=== PATIENT | male | born 1980 | race Caucasian/White ===

== ENCOUNTER 2017-06-08 21:37 | Emergency (ER) | payer BC, OTHER ==
[~2017-06-08] VITALS: Ht 185.4 cm; Wt 131.5 kg
[~2017-06-08 21:37] MED LIST: ADVAIR HFA 230M12 GM INH; CIPROFLOXACIN500 M1 PO; COREG25 MG PO; HUMALOG100 UNIT/1 SUBQ; LANTUS100 UNIT/M SUBQ; LASIX 40 MG TAB40 M2 PO; NOVOLIN 70100 UNIT/5 SQ; PREDNISONE 10 M10 MG PO; PYRIDIUM200 MG PO; SINGULAIR 10 MG10 M1 PO; VENTOLIN HFA 1818 GM INH
[2017-06-08 22:02] LABS: URINE BILIRUBIN NEGATIVE (Negative); URINE BLOOD 3+ (Negative); URINE COLOR YELLOW; URINE GLUCOSE-RANDOM* NEGATIVE (Negative); URINE KETONES NEGATIVE (Negative); URINE LEUKOCYTES-REFLEX NEGATIVE (Negative); URINE PROTEIN (DIPSTICK) 1+ (Negative); URINE SPECIFIC GRAVITY >= 1.030 (1.003-1.035); URINE UROBILINOGEN 0.2 E.U./dl (0.2-1.0)
[2017-06-08 22:04] LABS: ABSOLUTE NEUTROPHILS 5.8 thou/uL (1.4-8.2); BASOPHILS 0.6 % (0.0-2.0); EOSINOPHILS 1.2 % (0.0-3.0); HEMATOCRIT 40.5 % (42.0-52.0); HEMOGLOBIN 13.9 gm/dL (14.0-18.0); MCH 28.8 pg (26.0-34.0); MCHC 34.4 g/dL (28.0-37.0); MCV 83.9 fL (80.0-100.0); MONOCYTES 7.2 % (1.0-8.0); PLATELET COUNT 268 thou/uL (150-400); RBC 4.83 mil/uL (4.50-6.00); RDW 13.7 % (10.5-14.5); WBC 10.2 thou/uL (4.0-11.0)
[2017-06-08 22:05] LABS: MANUAL DIFF NO
[2017-06-08 22:09] LABS: CASTS None Seen /LPF (None Seen); CRYSTALS None Seen /LPF (None Seen); SQUAMOUS 0-3 Few /LPF (0-3); URINE RBC >20 Many /HPF (0-2); URINE WBC-REFLEX None Seen /HPF (0-5)
[2017-06-08 22:14] LABS: CREATININE 1.1 mg/dL (0.7-1.3); POTASSIUM 3.8 mmol/L (3.5-5.1)
[2017-06-08 22:19] LABS: ALBUMIN 3.5 g/dL (3.4-5.0); TOTAL BILIRUBIN 0.3 mg/dL (<0.1-1.0); TOTAL PROTEIN 7.3 g/dL (6.4-8.2)
[2017-06-08] MEDS ORDERED: ZOFRAN ODT4 MG PO (23:47)
[2017-06-08] MEDS ORDERED: NORCO 5-325 TA1 EACH PO (23:47)
[2017-06-08] MEDS ORDERED: PYRIDIUM200 MG PO (23:47)
[2017-06-08] MEDS ORDERED: SENOKOT-S1 TA1 PO (23:47)
[2017-06-08] MEDS ORDERED: MACROBID 100 M100 M1 PO (23:47)
[2017-06-09 00:08] VITALS: BP 121/81
== END 2017-06-09 00:09 | disposition home or self-care (01) ==
LOC: ER 21:37
PROVIDERS: Emergency Medicine
DX: N10 Acute pyelonephritis (principal); I11.0 Hypertensive heart disease with heart failure; I50.9 Heart failure, unspecified; J45.909 Unspecified asthma, uncomplicated; F10.99 Alcohol use, unspecified with unspecified alcohol-induced disorder; E11.9 Type 2 diabetes mellitus without complications; Z79.4 Long term (current) use of insulin; Z88.0 Allergy status to penicillin; Z88.8 Allergy status to other drugs, medicaments and biological substances

== ENCOUNTER 2017-11-28 19:48 | Emergency (ER) | payer BC, OTHER ==
[~2017-11-28] VITALS: Ht 185.4 cm; Wt 129.3 kg
[~2017-11-28 19:48] MED LIST changes: +MACROBID 100 M100 M1 PO; +NORCO 5-325 TA1 EACH PO; +SENOKOT-S1 TA1 PO; +ZOFRAN ODT4 MG PO
[2017-11-28 20:30] LABS: ABSOLUTE NEUTROPHILS 7.1 thou/uL (1.4-8.2); BASOPHILS 0.5 % (0.0-2.0); EOSINOPHILS 0.9 % (0.0-3.0); HEMATOCRIT 41.1 % (42.0-52.0); LYMPHOCYTES 26.7 % (24.0-44.0); MCH 28.9 pg (26.0-34.0); MCHC 34.1 g/dL (28.0-37.0); MCV 84.9 fL (80.0-100.0); PLATELET COUNT 291 thou/uL (150-400); POLYS 65.9 % (36.0-66.0); RBC 4.84 mil/uL (4.50-6.00); RDW 13.3 % (10.5-14.5); WBC 10.8 thou/uL (4.0-11.0)
[2017-11-28] MEDS ORDERED: METFORMIN HCL500 MG PO (20:47)
[2017-11-28] MEDS ORDERED: PRILOSEC 20 MG20 MG PO ×2 (20:48→22:23)
[2017-11-28 20:54] LABS: ANION GAP 9 mmol/L (7-16); BUN 18 mg/dL (7-18); CHLORIDE 106 mmol/L (98-107); CO2 26 mmol/L (21-32); GLUCOSE 110 mg/dL (74-106); POTASSIUM 3.6 mmol/L (3.5-5.1); SODIUM 141 mmol/L (136-145)
[2017-11-28 21:00] LABS: ALBUMIN 3.6 g/dL (3.4-5.0); DIRECT BILIRUBIN < 0.1 mg/dL (<0.1-0.3); LIPASE 160 U/L (73-393); SGOT 17 U/L (15-37); SGPT 32 U/L (30-65); TOTAL BILIRUBIN 0.8 mg/dL (<0.1-1.0); TOTAL PROTEIN 7.1 g/dL (6.4-8.2)
[2017-11-28] MEDS ORDERED: ULTRAM 50MG TAB50 MG PO (22:23)
[2018-03-23] MEDS ORDERED: NORVASC5 MG PO (18:42)
[2018-03-23] MEDS ORDERED: PHENAZOPYRIDIN200 M2 PO ×2 (18:42→20:48)
[2018-03-23] MEDS ORDERED: NORCO 5-325 TA1 EACH PO (20:48)
== END 2017-11-28 22:39 | disposition home or self-care (01) ==
LOC: ER 19:48
PROVIDERS: Emergency Medicine
DX: R10.9 Unspecified abdominal pain (principal); I50.9 Heart failure, unspecified; J45.909 Unspecified asthma, uncomplicated; I10 Essential (primary) hypertension; E11.9 Type 2 diabetes mellitus without complications; Z88.0 Allergy status to penicillin; Z88.8 Allergy status to other drugs, medicaments and biological substances

== ENCOUNTER 2019-03-20 15:56 | Emergency (ER) | payer BC, OTHER ==
[~2019-03-20] VITALS: Ht 188 cm; Wt 129.3 kg
[~2019-03-20 15:56] MED LIST changes: +METFORMIN HCL500 MG PO; +NORVASC5 MG PO; +PHENAZOPYRIDIN200 M2 PO; +PRILOSEC 20 MG20 MG PO; +ULTRAM 50MG TAB50 MG PO
[2019-03-20] MEDS ORDERED: PREDNISONE 20 M20 MG PO (18:38)
[2019-03-20 19:03] VITALS: BP 129/73
[2019-03-20] MEDS ORDERED: ALBUTEROL2.5 MG/31 INH (19:03)
== END 2019-03-20 19:06 | disposition home or self-care (01) ==
LOC: ER 15:56
DX: J45.901 Unspecified asthma with (acute) exacerbation (principal); I11.0 Hypertensive heart disease with heart failure; I50.9 Heart failure, unspecified; E11.9 Type 2 diabetes mellitus without complications; Z86.14 Personal history of Methicillin resistant Staphylococcus aureus infection; Z87.442 Personal history of urinary calculi; Z79.4 Long term (current) use of insulin; Z79.899 Other long term (current) drug therapy; Z88.0 Allergy status to penicillin; Z88.8 Allergy status to other drugs, medicaments and biological substances

== ENCOUNTER 2019-04-04 18:36 | Emergency (ER) | payer BC, OTHER ==
[~2019-04-04] VITALS: Ht 185.4 cm; Wt 129.3 kg
[~2019-04-04 18:36] MED LIST changes: +ALBUTEROL2.5 MG/31 INH; +PREDNISONE 20 M20 MG PO
[2019-04-04] MEDS ORDERED: OXYCODON-ACETA1 EAC1 PO (18:44)
[2019-04-04] MEDS ORDERED: ASPIRIN325 PO (18:44)
[2019-04-04] MEDS ORDERED: BACTRIM DS TAB1 EACH PO ×2 (19:30→19:36)
[2019-04-04 21:25] VITALS: BP 135/85
== END 2019-04-04 21:25 | disposition home or self-care (01) ==
LOC: ER 18:36
DX: L03.116 Cellulitis of left lower limb (principal); G89.18 Other acute postprocedural pain; I11.0 Hypertensive heart disease with heart failure; I50.9 Heart failure, unspecified; J45.909 Unspecified asthma, uncomplicated; E11.9 Type 2 diabetes mellitus without complications; Z88.8 Allergy status to other drugs, medicaments and biological substances; Z88.0 Allergy status to penicillin; Z87.442 Personal history of urinary calculi; Z79.4 Long term (current) use of insulin

== ENCOUNTER 2019-05-10 14:25 | Emergency (ER) | payer BC, OTHER ==
[~2019-05-10] VITALS: Ht 182.9 cm; Wt 129.3 kg
[~2019-05-10 14:25] MED LIST changes: +ASPIRIN325 PO; +BACTRIM DS TAB1 EACH PO; +OXYCODON-ACETA1 EAC1 PO
[2019-05-10 15:38] LABS: HEMATOCRIT 41.9 % (42.0-52.0); HEMOGLOBIN 13.9 gm/dL (14.0-18.0); MCH 28.3 pg (26.0-34.0); MCHC 33.3 g/dL (28.0-37.0); RBC 4.92 mil/uL (4.50-6.00); RDW 14.1 % (10.5-14.5)
[2019-05-10 15:46] LABS: CALCIUM 9.2 mg/dL (8.5-10.1); CREATININE 1.1 mg/dL (0.7-1.3); POTASSIUM 3.5 mmol/L (3.5-5.1)
[2019-05-10 15:47] LABS: MAGNESIUM 1.6 mg/dL (1.8-2.4)
[2019-05-10 18:30] VITALS: BP 141/84
--- NOTE | 2019-05-11 08:21 | EKG ---
[place] [address] [facility] [place] [address] ELECTROCARDIOGRAM REPORT Name: CHRISTINA PONCE [facility] [id number] ������������������ Admission: 05/10/19 ������������������ Attend Phys: Discharge: 05/10/19 ������������������ Date of : 78 Report #: [id number] ����������������������������������������������������������������� [id number] THIS REPORT FOR: //name// [facility] ED Test Date: 2019-05-10 Test Time: 14:37:15 Pat Name: CHRISTINA PONCE Department: Room: Gender: Cold Type Artist: JLAMBERT : 1980 Requested By: Alcira Ma Order Number: [id number] MD: Edwin Garcia Measurements Intervals [place] Rate: 88 P: 29 [place]: 177 QRS: 47 QRSD: 99 T: 51 QT: 358 QTc: 434 Interpretive Statements Sinus rhythm Normal tracing Compared to ECG 08/01/2016 01:57:12 Sinus tachycardia no longer present Electronically Signed On 05-11-2019 8:20:56 CDT by Edwin Garcia [email or web address] ��������������������������������������������� <ELECTRONICALLY SIGNED> ���������������������������������������� By: Edwin Garcia MD, [facility] ��������������������������������������������� 05/11/19 0820 1437 1437 Edwin Garcia MD, FACC /EPI
== END 2019-05-10 18:30 | disposition home or self-care (01) ==
LOC: ER 14:25
PROVIDERS: Emergency Medicine
DX: R55 Syncope and collapse (principal); E11.9 Type 2 diabetes mellitus without complications; I10 Essential (primary) hypertension; J45.909 Unspecified asthma, uncomplicated; I50.9 Heart failure, unspecified; Z87.442 Personal history of urinary calculi; Z86.14 Personal history of Methicillin resistant Staphylococcus aureus infection; Z88.0 Allergy status to penicillin; Z88.8 Allergy status to other drugs, medicaments and biological substances

== ENCOUNTER 2019-06-09 10:11 | Emergency (ER) | payer BC, OTHER ==
[~2019-06-09] VITALS: Ht 185.4 cm; Wt 129.3 kg
[2019-06-09 10:35] LABS: ABSOLUTE NEUTROPHILS 3.4 thou/uL (1.4-8.2); BASOPHILS 0.5 % (0.0-2.0); EOSINOPHILS 2.2 % (0.0-3.0); HEMATOCRIT 44.1 % (42.0-52.0); HEMOGLOBIN 14.8 gm/dL (14.0-18.0); LYMPHOCYTES 41.7 % (24.0-44.0); MCH 28.6 pg (26.0-34.0); MCHC 33.7 g/dL (28.0-37.0); MCV 85.1 fL (80.0-100.0); MONOCYTES 8.4 % (1.0-8.0); PLATELET COUNT 273 thou/uL (150-400); POLYS 47.2 % (36.0-66.0); RBC 5.18 mil/uL (4.50-6.00); RDW 14.3 % (10.5-14.5); WBC 7.3 thou/uL (4.0-11.0)
[2019-06-09 10:45] LABS: ANION GAP 11 mmol/L (7-16); BUN 19 mg/dL (7-18); CALCIUM 9.4 mg/dL (8.5-10.1); CHLORIDE 105 mmol/L (98-107); CO2 25 mmol/L (21-32); CREATININE 1.1 mg/dL (0.7-1.3); GLUCOSE 127 mg/dL (74-106); POTASSIUM 3.6 mmol/L (3.5-5.1); SODIUM 141 mmol/L (136-145)
[2019-06-09 10:55] LABS: TROPONIN-I <0.06 ng/mL (<0.06)
[2019-06-09] MEDS ORDERED: PREDNISONE 20 M20 MG PO (11:39)
[2019-06-09 11:46] VITALS: BP 122/71
--- NOTE | 2019-06-12 17:59 | EKG ---
[place] [address] [employer] [place] [address] ELECTROCARDIOGRAM REPORT Name: KRIS Shirlene [facility] [id number] ������������������ Admission: 06/09/19 ������������������ Attend Phys: Discharge: 06/09/19 ������������������ Date of : [birth year] Report #: [id number] ����������������������������������������������������������������� [id number] THIS REPORT FOR: //name// [facility] ED Test Date: 2019-06-09 Test Time: 10:55:27 Pat Name: MICHAEL PONCE Department: Room: Gender: Clinical Rn Manager: RADHASDABDI : 1980 Requested By: Michael Osborn Order Number: [id number] MD: Edwin Garcia Measurements Intervals [place] Rate: 101 P: 10 [place]: 160 QRS: 37 QRSD: 91 T: 42 QT: 344 QTc: 446 Interpretive Statements Sinus tachycardia Otherwise no significant abnormality Compared to ECG 05/10/2019 14:37:15 heart rate has increased Electronically Signed On 06-12-2019 17:59:22 CDT by Edwin Garcia [email or web address] ��������������������������������������������� <ELECTRONICALLY SIGNED> ���������������������������������������� By: Edwin Garcia MD, [facility] ��������������������������������������������� 06/12/19 1759 1055 1055 Edwin Garcia MD, FACC /EPI
== END 2019-06-09 11:40 | disposition home or self-care (01) ==
LOC: ER 10:11
PROVIDERS: Emergency Medicine
DX: J45.901 Unspecified asthma with (acute) exacerbation (principal); I10 Essential (primary) hypertension; I11.0 Hypertensive heart disease with heart failure; I50.9 Heart failure, unspecified; E11.9 Type 2 diabetes mellitus without complications; Z86.14 Personal history of Methicillin resistant Staphylococcus aureus infection; Z88.0 Allergy status to penicillin; Z88.8 Allergy status to other drugs, medicaments and biological substances; Z87.442 Personal history of urinary calculi

== ENCOUNTER 2019-08-11 17:06 | Emergency (ER) | payer BC, OTHER ==
[~2019-08-11] VITALS: Ht 185.4 cm; Wt 129.3 kg
[2019-08-11 17:37] LABS: ABSOLUTE NEUTROPHILS 7.5 thou/uL (1.4-8.2); BASOPHILS 0.9 % (0.0-2.0); EOSINOPHILS 1.1 % (0.0-3.0); HEMATOCRIT 45.4 % (42.0-52.0); HEMOGLOBIN 15.3 gm/dL (14.0-18.0); LYMPHOCYTES 31.8 % (24.0-44.0); MCH 28.9 pg (26.0-34.0); MCHC 33.6 g/dL (28.0-37.0); MCV 86.1 fL (80.0-100.0); PLATELET COUNT 217 thou/uL (150-400); POLYS 59.2 % (36.0-66.0); RBC 5.27 mil/uL (4.50-6.00); RDW 14.3 % (10.5-14.5); WBC 12.7 thou/uL (4.0-11.0)
[2019-08-11 17:46] LABS: ANION GAP 13 mmol/L (7-16); BUN 16 mg/dL (7-18); CALCIUM 9.5 mg/dL (8.5-10.1); CHLORIDE 100 mmol/L (98-107); CO2 24 mmol/L (21-32); CREATININE 1.1 mg/dL (0.7-1.3); GLUCOSE 108 mg/dL (74-106); POTASSIUM 3.2 mmol/L (3.5-5.1); SODIUM 137 mmol/L (136-145)
[2019-08-11 17:55] LABS: TROPONIN-I <0.06 ng/mL (<0.06)
[2019-08-11 20:17] VITALS: BP 128/77
--- NOTE | 2019-08-12 17:23 | EKG ---
[place] [address] [place] [address] ELECTROCARDIOGRAM REPORT Name: CHRISTINA PONCE Shirlene [facility] [id number] ������������������ Admission: 08/11/19 ������������������ Attend Phys: Discharge: 08/11/19 ������������������ Date of : [birth year] Report #: [id number] ����������������������������������������������������������������� [id number] THIS REPORT FOR: //name// 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 : 1980 Requested By: Vinita Selby Order Number: [id number] MD: Edwin Garcia Measurements Intervals [place] Rate: 120 P: 36 ND: 157 QRS: 24 QRSD: 96 T: 62 QT: 331 QTc: 468 Interpretive Statements Sinus tachycardia Otherwise normal tracing Compared to ECG 06/09/2019 10:55:27 No significant changes Electronically Signed On 08-12-2019 17:23:09 CDT by Edwin Garcia [email or web address] ��������������������������������������������� <ELECTRONICALLY SIGNED> ���������������������������������������� By: Edwin Garcia MD, [facility] ��������������������������������������������� 08/12/19 1723 1709 1709 Edwin Garcia MD, FACC /EPI
== END 2019-08-11 20:37 | disposition home or self-care (01) ==
LOC: ER 17:06
PROVIDERS: Nurse Practitioner
DX: F41.9 Anxiety disorder, unspecified (principal); I11.0 Hypertensive heart disease with heart failure; I50.9 Heart failure, unspecified; E11.9 Type 2 diabetes mellitus without complications; J45.909 Unspecified asthma, uncomplicated; Z87.442 Personal history of urinary calculi; Z88.8 Allergy status to other drugs, medicaments and biological substances; Z88.0 Allergy status to penicillin; Z79.4 Long term (current) use of insulin

== ENCOUNTER 2020-08-28 23:22 | Emergency (ER) | payer OTHER ==
[~2020-08-28] VITALS: Ht 188 cm; Wt 136.5 kg
[2020-08-28] MEDS ORDERED: SINGULAIR 10 MG10 MG PO (23:31)
[2020-08-28] MEDS ORDERED: COZAAR 50 MG TA50 M1 PO (23:31)
[2020-08-29 00:01] LABS: ABSOLUTE NEUTROPHILS 9.1 thou/uL (1.4-8.2); BASOPHILS 0.3 % (0.0-2.0); EOSINOPHILS 1.1 % (0.0-3.0); HEMATOCRIT 41.1 % (42.0-52.0); HEMOGLOBIN 14.1 gm/dL (14.0-18.0); LYMPHOCYTES 17.3 % (24.0-44.0); MCH 29.1 pg (26.0-34.0); MCHC 34.2 g/dL (28.0-37.0); MCV 85.1 fL (80.0-100.0); MONOCYTES 6.1 % (1.0-8.0); PLATELET COUNT 278 thou/uL (150-400); POLYS 75.2 % (36.0-66.0); RBC 4.83 mil/uL (4.50-6.00); RDW 13.9 % (10.5-14.5); WBC 12.1 thou/uL (4.0-11.0)
[2020-08-29 00:04] LABS: CALCIUM 8.6 mg/dL (8.5-10.1); POTASSIUM 3.6 mmol/L (3.5-5.1)
[2020-08-29 00:11] LABS: ALBUMIN 3.3 g/dL (3.4-5.0); DIRECT BILIRUBIN 0.1 mg/dL (<0.1-0.2); TOTAL BILIRUBIN 0.5 mg/dL (0.2-1.0); TOTAL PROTEIN 7.6 g/dL (6.4-8.2)
[2020-08-29] MEDS ORDERED: CARAFATE1 GM PO (03:17)
[2020-08-29 04:00] VITALS: BP 150/80
== END 2020-08-29 04:01 | disposition home or self-care (01) ==
LOC: ER 23:22
PROVIDERS: Emergency Medicine
DX: R10.11 Right upper quadrant pain (principal); I11.0 Hypertensive heart disease with heart failure; I50.9 Heart failure, unspecified; E11.9 Type 2 diabetes mellitus without complications; K21.9 Gastro-esophageal reflux disease without esophagitis; J45.909 Unspecified asthma, uncomplicated; Z79.4 Long term (current) use of insulin; Z79.899 Other long term (current) drug therapy; Z88.0 Allergy status to penicillin; Z88.8 Allergy status to other drugs, medicaments and biological substances; Z79.82 Long term (current) use of aspirin

== ENCOUNTER 2020-09-15 13:11 | Emergency (ER) | payer OTHER ==
[~2020-09-15] VITALS: Ht 185.4 cm; Wt 136.5 kg
[~2020-09-15 13:11] MED LIST changes: +CARAFATE1 GM PO; +COZAAR 50 MG TA50 M1 PO; +SINGULAIR 10 MG10 MG PO
[2020-09-15 14:11] LABS: ABSOLUTE NEUTROPHILS 6.9 thou/uL (1.4-8.2); BASOPHILS 0.4 % (0.0-2.0); EOSINOPHILS 0.4 % (0.0-3.0); HEMATOCRIT 41.6 % (42.0-52.0); HEMOGLOBIN 13.8 gm/dL (14.0-18.0); LYMPHOCYTES 14.7 % (24.0-44.0); MCH 28.8 pg (26.0-34.0); MCHC 33.2 g/dL (28.0-37.0); MCV 86.6 fL (80.0-100.0); MONOCYTES 4.6 % (1.0-8.0); PLATELET COUNT 272 thou/uL (150-400); POLYS 79.9 % (36.0-66.0); RBC 4.81 mil/uL (4.50-6.00); WBC 8.6 thou/uL (4.0-11.0)
[2020-09-15] MEDS ORDERED: LANTUS SUBQ (14:29)
[2020-09-15] MEDS ORDERED: LOVENOX150 MG/1 M SUBQ (14:31)
[2020-09-15] MEDS ORDERED: TESSALON PERLE100 M1 PO (14:32)
[2020-09-15 14:34] LABS: ANION GAP 13 mmol/L (7-16); BUN 14 mg/dL (7-18); CALCIUM 9.3 mg/dL (8.5-10.1); CHLORIDE 104 mmol/L (98-107); CO2 23 mmol/L (21-32); CREATININE 0.9 mg/dL (0.7-1.3); GLUCOSE 125 mg/dL (74-106); POTASSIUM 4.3 mmol/L (3.5-5.1); SODIUM 140 mmol/L (136-145)
[2020-09-15 14:44] LABS: ALBUMIN 3.6 g/dL (3.4-5.0); SGOT 48 U/L (15-37); SGPT 100 U/L (30-65); TOTAL BILIRUBIN 0.4 mg/dL (0.2-1.0); TOTAL PROTEIN 7.5 g/dL (6.4-8.2); TROPONIN-I <0.06 ng/mL (<0.06)
[2020-09-15] MEDS ORDERED: SENNA-DOCUSATE1 EAC1 PO (16:37)
[2020-09-15] MEDS ORDERED: NORCO 5-325 TA1 EAC2 PO (16:37)
[2020-09-15 17:02] VITALS: BP 129/79
--- NOTE | 2020-09-15 23:00 | EKG ---
[facility] [place] [address] ELECTROCARDIOGRAM REPORT Name: CHRISTINA PONCE Room #: DEP [facility]#: [id number] Admission: 09/15/20 Attend Phys: Discharge: 09/15/20 Date of : [birth year] Report #: [id number] THIS REPORT FOR: cc: EDGARDO MEEK Physician not on staff Edwin Garcia MD [facility] ~ THIS REPORT FOR: //name// [facility] ED Test Date: 2020-09-15 Test Time: 13:20:05 Pat Name: CHRISTINA PONCE Department: Room: Gender: Skin Carver: [facility] : 1980 Requested By: Jeniffer Calderon Order Number: [id number] MD: Edwin Garcia Measurements Intervals [place] Rate: 93 P: 6 [place]: 164 QRS: -5 QRSD: 126 T: 39 QT: 382 QTc: 476 Interpretive Statements Sinus rhythm No significant abnormality Compared to ECG 08/11/2019 17:09:14 Sinus tachycardia no longer present Electronically Signed On 09-15-2020 23:00:47 CDT by Edwin Garcia [email or web address] <ELECTRONICALLY SIGNED> By: Edwin Garcia MD, FACC 09/15/20 2300 1320 1320 Edwin Garcia MD, [facility] /EPI
--- NOTE | 2020-09-15 23:01 | EKG ---
[facility] [place] [address] ELECTROCARDIOGRAM REPORT Name: CHRISTINA PONCE Room #: DEP [facility]#: [id number] Admission: 09/15/20 Attend Phys: Discharge: 09/15/20 Date of : [birth year] Report #: [id number] THIS REPORT FOR: cc: EDGARDO MEEK Physician not on staff Edwin Garcia MD [facility] ~ THIS REPORT FOR: //name// [facility] ED Test Date: 2020-09-15 Test Time: 13:31:38 Pat Name: CHRISTINA PONCE Department: Room: Gender: Infusion Rn: [facility] : 1980 Requested By: Jeniffer Calderon Order Number: [id number] MD: Edwin Garcia Measurements Intervals [place] Rate: 82 P: 48 NM: 171 QRS: 9 QRSD: 97 T: 47 QT: 376 QTc: 439 Interpretive Statements Sinus rhythm No significant abnormality Compared to ECG 09/15/2020 13:20:05 No significant change was found Electronically Signed On 09-15-2020 23:01:08 CDT by Edwin Garcia [email or web address] <ELECTRONICALLY SIGNED> By: Edwin Garcia MD, FACC 09/15/20 2301 30 30 Edwin Garcia MD, FAC /EPI
[2020-09-16] MEDS ORDERED: ZOFRAN ODT4 MG PO (01:37)
== END 2020-09-15 17:03 | disposition home or self-care (01) ==
LOC: ER 13:11
PROVIDERS: Physician Assistant
DX: I26.99 Other pulmonary embolism without acute cor pulmonale (principal); D64.9 Anemia, unspecified; R74.01 Elevation of levels of liver transaminase levels; J45.909 Unspecified asthma, uncomplicated; I11.0 Hypertensive heart disease with heart failure; I50.9 Heart failure, unspecified; E11.9 Type 2 diabetes mellitus without complications; Z87.442 Personal history of urinary calculi; Z86.14 Personal history of Methicillin resistant Staphylococcus aureus infection; E66.9 Obesity, unspecified; Z68.39 Body mass index [BMI] 39.0-39.9, adult; Z79.899 Other long term (current) drug therapy; Z79.4 Long term (current) use of insulin; Z88.8 Allergy status to other drugs, medicaments and biological substances; Z88.0 Allergy status to penicillin

== ENCOUNTER 2020-09-15 22:21 | Emergency (ER) | payer OTHER ==
[~2020-09-15] VITALS: Ht 185.4 cm; Wt 136.5 kg
[~2020-09-15 22:21] MED LIST changes: +LANTUS SUBQ; +LOVENOX150 MG/1 M SUBQ; +NORCO 5-325 TA1 EAC2 PO; +SENNA-DOCUSATE1 EAC1 PO; +TESSALON PERLE100 M1 PO
[2020-09-15 22:38] LABS: ABSOLUTE NEUTROPHILS 6.6 thou/uL (1.4-8.2); BASOPHILS 0.4 % (0.0-2.0); EOSINOPHILS 1.7 % (0.0-3.0); HEMATOCRIT 42.3 % (42.0-52.0); HEMOGLOBIN 13.8 gm/dL (14.0-18.0); LYMPHOCYTES 30.3 % (24.0-44.0); MCH 28.4 pg (26.0-34.0); MCHC 32.5 g/dL (28.0-37.0); MCV 87.2 fL (80.0-100.0); MONOCYTES 8.9 % (1.0-8.0); PLATELET COUNT 312 thou/uL (150-400); POLYS 58.7 % (36.0-66.0); RBC 4.85 mil/uL (4.50-6.00); RDW 14.7 % (10.5-14.5); WBC 11.2 thou/uL (4.0-11.0)
[2020-09-15 22:43] LABS: ANION GAP 17 mmol/L (7-16); BUN 15 mg/dL (7-18); CALCIUM 9.2 mg/dL (8.5-10.1); CHLORIDE 103 mmol/L (98-107); CO2 23 mmol/L (21-32); CREATININE 1.2 mg/dL (0.7-1.3); GLUCOSE 140 mg/dL (74-106); SODIUM 143 mmol/L (136-145)
[2020-09-15 22:47] LABS: POTASSIUM 3.2 mmol/L (3.5-5.1)
[2020-09-15 22:52] LABS: ALBUMIN 3.6 g/dL (3.4-5.0); SGOT 37 U/L (15-37); SGPT 104 U/L (30-65); TOTAL BILIRUBIN 0.2 mg/dL (0.2-1.0); TOTAL PROTEIN 7.2 g/dL (6.4-8.2); TROPONIN-I <0.06 ng/mL (<0.06)
[2020-09-16] MEDS ORDERED: ZOFRAN ODT4 MG PO (01:37)
[2020-09-16 01:50] VITALS: BP 125/60
--- NOTE | 2020-09-17 07:31 | EKG ---
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: : 1980 Requested By: Miguel Angel Harris Order Number: [id number] MD: Edwin Garcia Measurements Intervals [place] Rate: 114 P: 35 [place]: 132 QRS: 18 QRSD: 87 T: 70 QT: 333 QTc: 459 Interpretive Statements Sinus tachycardia Otherwise no significant abnormality Compared to ECG 09/15/2020 13:31:38 Heart rate has increased Electronically Signed On 09-17-2020 7:30:51 CDT by Edwin Garcia [email or web address] <ELECTRONICALLY SIGNED> By: Edwin Garcia MD, FAC 09/17/2030 24 24 Edwin Garcia MD, [facility] /EPI
== END 2020-09-16 01:50 | disposition home or self-care (01) ==
LOC: ER 22:21
PROVIDERS: Emergency Medicine
DX: E83.42 Hypomagnesemia (principal); E87.6 Hypokalemia; R11.2 Nausea with vomiting, unspecified; E11.9 Type 2 diabetes mellitus without complications; E78.5 Hyperlipidemia, unspecified; I11.0 Hypertensive heart disease with heart failure; I50.9 Heart failure, unspecified; J45.909 Unspecified asthma, uncomplicated; Z87.442 Personal history of urinary calculi; E66.01 Morbid (severe) obesity due to excess calories; Z68.39 Body mass index [BMI] 39.0-39.9, adult; Z86.14 Personal history of Methicillin resistant Staphylococcus aureus infection; Z79.899 Other long term (current) drug therapy; Z79.4 Long term (current) use of insulin; Z88.8 Allergy status to other drugs, medicaments and biological substances; Z88.0 Allergy status to penicillin

== ENCOUNTER 2020-09-29 14:43 | Emergency (ER) | payer OTHER ==
[~2020-09-29] VITALS: Ht 185.4 cm; Wt 133.8 kg
[2020-09-29 15:40] LABS: ABSOLUTE NEUTROPHILS 7.9 thou/uL (1.4-8.2); BASOPHILS 0.3 % (0.0-2.0); EOSINOPHILS 0.1 % (0.0-3.0); HEMATOCRIT 41.1 % (42.0-52.0); HEMOGLOBIN 13.9 gm/dL (14.0-18.0); LYMPHOCYTES 9.8 % (24.0-44.0); MCH 29.3 pg (26.0-34.0); MCHC 33.9 g/dL (28.0-37.0); MCV 86.4 fL (80.0-100.0); MONOCYTES 5.7 % (1.0-8.0); PLATELET COUNT 257 thou/uL (150-400); POLYS 84.1 % (36.0-66.0); RBC 4.76 mil/uL (4.50-6.00); RDW 14.8 % (10.5-14.5); WBC 9.4 thou/uL (4.0-11.0)
[2020-09-29 15:53] LABS: ANION GAP 14 mmol/L (7-16); BUN 16 mg/dL (7-18); CALCIUM 8.9 mg/dL (8.5-10.1); CHLORIDE 103 mmol/L (98-107); CO2 21 mmol/L (21-32); CREATININE 1.1 mg/dL (0.7-1.3); GLUCOSE 149 mg/dL (74-106); POTASSIUM 3.7 mmol/L (3.5-5.1); SODIUM 138 mmol/L (136-145)
[2020-09-29 16:02] LABS: TROPONIN-I <0.06 ng/mL (<0.06)
[2020-09-29 16:10] LABS: APTT 24.7 Seconds (24.5-32.8); INR 1.1; PROTIME 10.9 Seconds (9.3-11.4)
[2020-09-29] MEDS ORDERED: ELIQUIS5 MG PO (16:36)
[2020-09-29] MEDS ORDERED: ZPAK PO (17:33)
[2020-09-29 18:42] VITALS: BP 142/84
--- NOTE | 2020-10-01 07:38 | EKG ---
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: [facility] [place] : 1980 Requested By: Junior Almendarez Order Number: [id number] MD: Edwin Garcia Measurements Intervals [place] Rate: 86 P: 30 SD: 170 QRS: 9 QRSD: 103 T: 37 QT: 361 QTc: 432 Interpretive Statements Sinus rhythm Poor R wave progression Compared to ECG 09/15/2020 22:25:39 Sinus tachycardia no longer present Electronically Signed On 10-01-2020 7:38:08 COMPUTER SYSTEMS HARDWARE ANALYST by Edwin Garcia [email or web address] <ELECTRONICALLY SIGNED> By: Edwin Garcia MD, FAC 10/01/20 0738 1528 1528 Edwin Garcia MD, [facility] /EPI
== END 2020-09-29 18:40 | disposition home or self-care (01) ==
LOC: ER 14:43
PROVIDERS: Nurse Practitioner
DX: R06.00 Dyspnea, unspecified (principal); F41.9 Anxiety disorder, unspecified; R05 Cough; I11.0 Hypertensive heart disease with heart failure; I50.9 Heart failure, unspecified; J45.909 Unspecified asthma, uncomplicated; E11.9 Type 2 diabetes mellitus without complications; Z79.899 Other long term (current) drug therapy; Z88.0 Allergy status to penicillin; Z88.8 Allergy status to other drugs, medicaments and biological substances

== ENCOUNTER 2020-10-29 05:43 | Emergency (ER) | payer OTHER ==
[~2020-10-29] VITALS: Ht 185.4 cm; Wt 134.3 kg
[~2020-10-29 05:43] MED LIST changes: +ELIQUIS5 MG PO; +ZPAK PO
[2020-10-29] MEDS ORDERED: LEVALBUTER0.31 MG/3 IH (06:08)
[2020-10-29 06:37] LABS: ABSOLUTE NEUTROPHILS 7.8 thou/uL (1.4-8.2); BASOPHILS 0.3 % (0.0-2.0); EOSINOPHILS 0.2 % (0.0-3.0); HEMATOCRIT 39.8 % (42.0-52.0); HEMOGLOBIN 13.2 gm/dL (14.0-18.0); LYMPHOCYTES 17.3 % (24.0-44.0); MCH 29.3 pg (26.0-34.0); MCHC 33.1 g/dL (28.0-37.0); MCV 88.6 fL (80.0-100.0); MONOCYTES 5.5 % (1.0-8.0); PLATELET COUNT 227 thou/uL (150-400); POLYS 76.7 % (36.0-66.0); RBC 4.49 mil/uL (4.50-6.00); RDW 15.5 % (10.5-14.5); WBC 10.2 thou/uL (4.0-11.0)
[2020-10-29 07:11] LABS: ANION GAP 11 mmol/L (7-16); BUN 20 mg/dL (7-18); CALCIUM 9.2 mg/dL (8.5-10.1); CHLORIDE 105 mmol/L (98-107); CO2 25 mmol/L (21-32); CREATININE 0.9 mg/dL (0.7-1.3); GLUCOSE 153 mg/dL (74-106); POTASSIUM 3.8 mmol/L (3.5-5.1); SODIUM 141 mmol/L (136-145)
[2020-10-29 07:19] LABS: TROPONIN-I <0.06 ng/mL (<0.06)
--- NOTE | 2020-10-29 07:39 | EKG ---
[facility] [place] [address] ELECTROCARDIOGRAM REPORT Name: CHRISTINA PONCE Shirlene Room #: [facility]#: [id number] Admission: 10/29/20 Attend Phys: Discharge: Date of : [birth year] Report #: [id number] THIS REPORT FOR: cc: EDGARDO MEEK Physician not on staff Gilberto Gustafson MD [facility] ~ THIS REPORT FOR: //name// [facility] ED Test Date: 2020-10-29 Test Time: 05:45:43 Pat Name: CHRISTINA PONCE Department: Room: Gender: M Project Manager Process Development: JENNIFERMSKYA : 1980 Requested By: Frank Ramsey Order Number: [id number] MD: Gilberto Gustafson Measurements Intervals [place] Rate: 73 P: 34 [place]: 161 QRS: 18 QRSD: 99 T: 44 QT: 384 QTc: 424 Interpretive Statements Sinus rhythm Compared to ECG 09/29/2020 15:28:45 Poor R-wave progression no longer present Electronically Signed On 10-29-2020 7:39:17 TOP AND TRIM WORKER by Gilberto Gustafson [email or web address] <ELECTRONICALLY SIGNED> By: Gilberto Gustafson MD, FACC 10/29/2039 0545 0545 Gilberto Gustafson MD, FACC /EPI
[2020-10-29] MEDS ORDERED: MOBIC7.5 MG PO (09:59)
[2020-10-29 10:05] VITALS: BP 128/71
== END 2020-10-29 10:05 | disposition home or self-care (01) ==
LOC: ER 05:43
PROVIDERS: Emergency Medicine
DX: R07.9 Chest pain, unspecified (principal); R06.00 Dyspnea, unspecified; I11.0 Hypertensive heart disease with heart failure; I50.9 Heart failure, unspecified; J45.909 Unspecified asthma, uncomplicated; E11.9 Type 2 diabetes mellitus without complications; Z79.899 Other long term (current) drug therapy; Z79.4 Long term (current) use of insulin; Z88.0 Allergy status to penicillin; Z88.8 Allergy status to other drugs, medicaments and biological substances

== ENCOUNTER 2021-03-15 23:20 | Emergency (ER) | payer OTHER ==
[~2021-03-15] VITALS: Ht 182.9 cm; Wt 138.3 kg
[~2021-03-15 23:20] MED LIST changes: +LEVALBUTER0.31 MG/3 IH; +MOBIC7.5 MG PO
[2021-03-15 23:36] LABS: ABSOLUTE NEUTROPHILS 5.7 thou/uL (1.4-8.2); BASOPHILS 0.7 % (0.0-2.0); EOSINOPHILS 1.3 % (0.0-3.0); HEMATOCRIT 41.7 % (42.0-52.0); HEMOGLOBIN 14.2 gm/dL (14.0-18.0); LYMPHOCYTES 29.3 % (24.0-44.0); MCH 29.3 pg (26.0-34.0); MCHC 34.1 g/dL (28.0-37.0); MCV 85.8 fL (80.0-100.0); MONOCYTES 7.1 % (1.0-8.0); PLATELET COUNT 293 thou/uL (150-400); POLYS 61.6 % (36.0-66.0); RBC 4.86 mil/uL (4.50-6.00); RDW 13.8 % (10.5-14.5); WBC 9.2 thou/uL (4.0-11.0)
[2021-03-15] MEDS ORDERED: PRILOSEC OTC20 MG PO (23:39)
[2021-03-15] MEDS ORDERED: WARFARIN SODIUM1 MG PO (23:40)
[2021-03-15] MEDS ORDERED: IMDUR 60 MG TAB60 M1 PO (23:41)
[2021-03-15] MEDS ORDERED: SPIRIVA18 MCG INH (23:41)
[2021-03-15] MEDS ORDERED: HUMALOG100 UNIT/1 SUBQ (23:41)
[2021-03-15] MEDS ORDERED: INDERAL LA 80 M80 M1 PO (23:42)
[2021-03-15] MEDS ORDERED: NITROSTAT0.4 MG SUBLING (23:42)
[2021-03-15 23:48] LABS: ANION GAP 15 mmol/L (7-16); BUN 14 mg/dL (7-18); CALCIUM 8.2 mg/dL (8.5-10.1); CHLORIDE 106 mmol/L (98-107); CO2 22 mmol/L (21-32); CREATININE 1.1 mg/dL (0.7-1.3); GLUCOSE 117 mg/dL (74-106); POTASSIUM 3.9 mmol/L (3.5-5.1); SODIUM 143 mmol/L (136-145)
[2021-03-15] MEDS ORDERED: CLONAZEPAM 0.50.5 M1 (23:48)
[2021-03-15 23:52] LABS: APTT 38.4 Seconds (24.5-32.8); INR 3.01; PROTIME 31.1 Seconds (9.3-11.4)
[2021-03-15 23:58] LABS: ALBUMIN 3.4 g/dL (3.4-5.0); SGOT 15 U/L (15-37); SGPT 28 U/L (30-65); TOTAL BILIRUBIN 0.3 mg/dL (0.2-1.0); TOTAL PROTEIN 6.6 g/dL (6.4-8.2); TROPONIN-I <0.06 ng/mL (<0.06)
[2021-03-16 01:40] VITALS: BP 133/79
--- NOTE | 2021-03-16 11:15 | EKG ---
[place] [address] [place] [address] ELECTROCARDIOGRAM REPORT Name: CHRISTINA PONCE [facility] [id number] Admission: 03/15/21 Attend Phys: Discharge: 03/16/21 Date of : [birth year] Report #: [id number] [facility] ED Test Date: 2021-03-15 Test Time: 23:21:57 Pat Name: CHRISTINA PONCE Department: Room: Gender: M Radiation Therapist: [email or web address] : 1980 Requested By: Neal Kim Order Number: [id number] MD: Edwin Garcia Measurements Intervals [place] Rate: 66 P: 23 PA: 152 QRS: 23 QRSD: 108 T: 46 QT: 405 QTc: 425 Interpretive Statements Sinus rhythm No significant abnormality Compared to ECG 10/29/2020 05:45:43 No significant change was found Electronically Signed On 03-16-2021 11:15:10 CDT by Edwin Garcia [email or web address] <ELECTRONICALLY SIGNED> By: Edwin Garcia MD, [facility] 03/16/21 1115 232 2321 Edwin Garcia MD, FACC /EPI
--- NOTE | 2021-03-16 11:15 | EKG ---
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
== END 2021-03-16 01:40 | disposition short-term general hospital (02) ==
LOC: ER 23:20
PROVIDERS: Emergency Medicine
DX: R07.89 Other chest pain (principal); I11.0 Hypertensive heart disease with heart failure; I50.9 Heart failure, unspecified; J45.909 Unspecified asthma, uncomplicated; E11.9 Type 2 diabetes mellitus without complications; Z79.4 Long term (current) use of insulin; Z79.01 Long term (current) use of anticoagulants; Z79.899 Other long term (current) drug therapy; Z88.0 Allergy status to penicillin; Z88.8 Allergy status to other drugs, medicaments and biological substances; Z20.822 Contact with and (suspected) exposure to COVID-19

== ENCOUNTER 2021-06-23 14:25 | Emergency (ER) | payer OTHER ==
[~2021-06-23] VITALS: Ht 185.4 cm; Wt 135.2 kg
--- NOTE | ~2021-06-23 | EMS ---
[address] [address] EMS Patient Care Report Name: CHRISTINA PONCE Room #: DEP [facility]#: [id number] Admission: 06/23/21 Attend Phys: Discharge: 06/23/21 Date of : [birth year] Report #: [id number] THIS REPORT FOR: //name// Report Transmitted: 06/25/2021 15:04 EMS Care Summary [place], [place]/[facility] Incident [id number] @ 06/23/2021 13:41 Incident Location [address] [place] [address] Patient CHRISTINA PONCE Male, 41 Years 1980 Patient Address [address] [place] [address] Patient History Asthma,Diabetes, Patient Allergies Penicillin allergy, Patient Medications Albuterol, Atrovent, Insulin, Chief Complaint SOA Disposition Transported No Lights/[place] Dispatch Reason Breathing Problem Transported To [facility] Narrative Upon arrival PT was sitting in the upright position in living room. P42 had already arrived on scene and were preforming medical intervention. PT had a CC of SOA with onset of 1230. PT was assisted to stretcher in back of ambulance for further medical evaluation and intervention. [place] [address] EMS Patient Care Report Name: CHRISTINA PONCE Room #: DEP [facility]#: [id number] Admission: 06/23/21 Attend Phys: Discharge: 06/23/21 Date of : [birth year] Report #: [id number] change in condition while en route to hospital. Initial Vitals @14:02P: 111,SpO2: 97, @13:59P: 113,R: 18,BP: 138/84,Pain: 0/10,GCS: 15,CO: 1,SpO2: 97,Revised Trauma: 12, @14:09P: 112,R: 18,BP: 136/84,Pain: 0/10,GCS: 15,SpO2: 97,Revised Trauma: 12, Assessments @14:12MENTAL:No Abnormalities,SKIN:No Abnormalities,HEENT:Head/Face: No Abnormalities,Eyes: No Abnormalities,Neck/Airway: No Abnormalities,LUNG SOUNDS:General: No Abnormalities,Left Upper: No Abnormalities,Right Upper: No Abnormalities,Left Lower: No Abnormalities,Right Lower: No Abnormalities,ABDOMEN:General: No Abnormalities,Left Upper: No Abnormalities,Right Upper: No Abnormalities,Left Lower: No Abnormalities,Right Lower: No Abnormalities,PELVIS//GI:No Abnormalities,EXTREMITIES:Capillary Refill: Left Upper: < 2 Sec,Capillary Refill: Right Upper: < 2 Sec,PULSE:Radial: 2+ Normal,NEURO:No Abnormalities, Impression Acute Respiratory Distress (Dyspnea) Procedures @14:0212-Lead ECG@13:49ALS AssessmentResponse: UnchangedSucceeded@13:50Atrovent - 0.5 Milligrams (mg) - NebulizedResponse: Unchanged@13:50Albuterol - 2.5 Milligrams (mg) - NebulizedResponse: Improved@PTASaline Lock cc (18 ga) Site: Antecubital-LeftResponse: UnchangedSucceeded@14:28Solu-Medrol - 125 Drops (gtts) - Intravenous (IV)Response: Improved Timeline UTILITY SALES AND SERVICE MANAGER,Saline Lock cc 18 ga Site: Antecubital-Left,Response: UnchangedSucceeded, 13:37,Call Received 13:37,Dispatch Notified 13:41,Dispatched 13:42,En Route 13:48,On Scene 13:49,At Patient 13:49,ALS Assessment,Response: UnchangedSucceeded, 13:50,Albuterol - 2.5 Milligrams (mg) - Nebulized,Response: Improved 13:50,Atrovent - 0.5 Milligrams (mg) - Nebulized,Response: Unchanged 13:59,BP: 138/84 M,PULSE: 113,RR: 18 R,SPO2: 97 Ox,ETCO2: ,BG: ,PAIN: 0,GCS: 15, 14:02,12-Lead ECG, 14:02,BP: / M,PULSE: 111,RR: R,SPO2: 97 Ox,ETCO2: ,BG: ,PAIN: ,GCS: , 14:06,Depart Scene 14:09,BP: 136/84 M,PULSE: 112,RR: 18 R,SPO2: 97 Ox,ETCO2: ,BG: ,PAIN: 0,GCS: [address] [address] EMS Patient Care Report Name: CHRISTINA PONCE Room #: DEP [facility]#: [id number] Admission: 06/23/21 Attend Phys: Discharge: 06/23/21 Date of : [birth year] Report #: [id number] 15, 14:18,At Destination 14:28,Solu-Medrol - 125 Drops (gtts) - Intravenous (IV),Response: Improved 14:30,Call Closed Disclaimer [email or web address] Copyright 2020 [employer] This EMS Care Summary contains data elements from the applicable legal record (which may be displayed differently). It is designed to provide pertinent information for the following purposes: continuity of care, clinical quality, and state data reporting. The complete legal record is available to ED staff and administrators of the receiving hospital in [employer] Patient Tracker. All data is provided "as is."
[~2021-06-23 14:25] MED LIST changes: +CLONAZEPAM 0.50.5 M1; +IMDUR 60 MG TAB60 M1 PO; +INDERAL LA 80 M80 M1 PO; +NITROSTAT0.4 MG SUBLING; +PRILOSEC OTC20 MG PO; +SPIRIVA18 MCG INH; +WARFARIN SODIUM1 MG PO
[2021-06-23] MEDS ORDERED: PREDNISONE 20 M20 MG PO (15:44)
[2021-06-23 15:54] VITALS: BP 130/78
== END 2021-06-23 15:54 | disposition home or self-care (01) ==
LOC: ER 14:25
DX: J45.901 Unspecified asthma with (acute) exacerbation (principal); I11.0 Hypertensive heart disease with heart failure; I50.9 Heart failure, unspecified; E11.9 Type 2 diabetes mellitus without complications; E66.01 Morbid (severe) obesity due to excess calories; Z79.2 Long term (current) use of antibiotics; Z79.4 Long term (current) use of insulin; Z79.899 Other long term (current) drug therapy; Z20.822 Contact with and (suspected) exposure to COVID-19; Z88.0 Allergy status to penicillin; Z88.8 Allergy status to other drugs, medicaments and biological substances; Z68.39 Body mass index [BMI] 39.0-39.9, adult